=== PATIENT | male | born 1985 | race American Indian/Alaskan Native ===

== ENCOUNTER 2017-10-30 20:51 | Emergency (ER) | payer MEDICAID ==
[2017-10-30] MEDS: Penicillin V Potassium 250 MG Tab PO ONE (22:00)
[2017-10-30] MEDS: Ketorolac 60 MG/2 ML SDV IM ONE (22:00)
[2017-10-30] MEDS: Acetaminophen/HYDROcodone 325-5 MG Tab PO ONE (22:00)
--- NOTE | 2017-10-30 22:05 | EDM.PDOC ---
ED HPI GENERAL MEDICAL PROBLEM - General Chief Complaint: ENT Problem Stated Complaint: TOOTH PAIN Time Seen by Provider: 10/30/17 21:23 Source of Information: Reports: Patient History Limitations: Reports: No Limitations - History of Present Illness INITIAL COMMENTS - FREE TEXT/NARRATIVE: dental pain; reports tooth cracked about one month ago, the past few days has been throbbing pain, has tried oragel without relief. now face is swollen and has left ear pain. New to the area, doesn't have a car. Onset: Gradual Duration: Constant, Getting Worse Location: Reports: Other (dental and ear pain) Quality: Reports: Sharp, Throbbing Severity: Severe Improves with: Reports: None Worsens with: Reports: Eating Associated Symptoms: Reports: No Other Symptoms Treatments DIGITAL ASSOCIATE: Reports: Acetaminophen Other Treatments DIGITAL ASSOCIATE: Oragel Left Lower Tooth/Teeth Pain Score (Numeric/FACES): 7 - Related Data Allergies Allergy/AdvReac Type Severity Reaction Status Date / Time No Known Allergies Allergy Verified 10/30/17 21:35 Home Meds: Home Meds NK [No Known Home Meds] 10/30/17 [History] Past Medical History - Past Health History Medical/Surgical History: Denies Medical/Surgical History Social & Family History - Tobacco Use Smoking Status *Q: Never Smoker - Caffeine Use Caffeine Use: Reports: Coffee, Soda - Recreational Drug Use Recreational Drug Use: No - Living Situation & Occupation Living situation: Reports: with Family Occupation: Unemployed (recently moved to [place] with SO and [id number]. ) ED ROS ENT - Review of Systems Review Of Systems: See Below Constitutional: Reports: Other (facial and ear pain) HEENT: Reports: Dental Pain, Ear Pain (left) Respiratory: Reports: No Symptoms Cardiovascular: Reports: No Symptoms Skin: Reports: No Symptoms Neurological: Reports: No Symptoms Psychiatric: Reports: No Symptoms Hematologic/Lymphatic: Reports: No Symptoms Immunologic: Reports: No Symptoms ED EXAM, ENT - Physical Exam Exam: See Below General Appearance: Alert, WD/WN, Mild Distress, Other (pleasant neat and well groomed) Eye Exam: Bilateral Eye: Normal Inspection Ears: Normal External Exam, TM Bulging (left) Nose: Normal Inspection, Normal Mucousa, No Blood Mouth/Throat: Dental Abcess (left lower molar. ), Dental Pain (left upper and lower jaw. front teeth in excellent condition.) Head: Atraumatic, Facial Swelling (left cheek), Facial Tenderness (left maxillary sinus area) Neck: Normal Inspection, Supple, Non-Tender, Full Range of Motion Respiratory/Chest: No Respiratory Distress Skin: Warm, Dry, Intact, Normal Color, No Rash Lymphatic: No Adenopathy Course - Vital Signs Last Recorded V/S: Last Vital Signs Temp 36.3 C 10/30/17 21:36 Pulse 85 10/30/17 21:36 Resp 16 10/30/17 21:36 BP 135/69 10/30/17 21:36 Pulse Ox 97 10/30/17 21:36 - Orders/Labs/Meds Meds: Medications Discontinued Medications Generic Name Dose Route Start Last Admin Trade Name Freq PRN Reason Stop Dose Admin Hydrocodone Bitart/Acetaminophen 1 tab 10/30/17 21:52 10/30/17 22:00 [place] 325-5 Mg PO 10/30/17 21:53 1 tab ONETIME ONE Administration Ketorolac Tromethamine 60 mg 10/30/17 21:52 10/30/17 22:00 Toradol IM 10/30/17 21:53 60 mg ONETIME ONE Administration Penicillin V Potassium 500 mg 10/30/17 21:52 10/30/17 22:00 Veetids PO 10/30/17 21:53 500 mg ONETIME ONE Administration Departure - Departure Time of Disposition: 22:17 Disposition: Home, Self-Care 01 Condition: Good Clinical Impression: Dental abscess Otitis media Qualifiers: Otitis media type: other nonsuppurative Laterality: left Recurrence: not specified as recurrent - Discharge Information Instructions: Otitis Media, Adult, [id number], Dental Abscess Referrals: PCP,None [Primary Care Provider] - Forms: ED Department Discharge Care Plan Goals: Dental abscess and left ear infection -Penicillin 500mg take one tablet 4 times a day for 10 days -hydrocodone 5-325mg take one tablet every 4 to 6 hours as needed for pain #6 Advised to go to Dental Clinic in am for further care can go to [facility] or [facility] return to ER for any fever, chills, nausea, vomiting, increased facial swelling or any concerns. - Problem List & Annotations (1) Dental abscess SNOMED Code(s): 659111992 Code(s): K04.7 - PERIAPICAL ABSCESS WITHOUT SINUS Status: Acute Priority : High Current Visit: Yes (2) Otitis media SNOMED Code(s): 94925255 Code(s): H66.90 - OTITIS MEDIA, UNSPECIFIED, UNSPECIFIED EAR Status: Acute Priority: Medium Current Visit: Yes Qualifiers: Otitis media type: other nonsuppurative Laterality: left Recurrence: not specified as recurrent - Problem List Review Problem List Initiated/Reviewed/Updated: Yes - Assessment/Plan Plan: Dental abscess and left ear infection -Penicillin 500mg take one tablet 4 times a day for 10 days -hydrocodone 5-325mg take one tablet every 4 to 6 hours as needed for pain #6 Advised to go to Dental Clinic in am for further care can go to [facility] in [place] or [facility] return to ER for any fever, chills, nausea, vomiting, increased facial swelling or any concerns.
== END 2017-10-30 22:17 | disposition home or self-care (01) ==
LOC: JP.ED 20:51
DX: K04.7 Periapical abscess without sinus (principal); H65.92 Unspecified nonsuppurative otitis media, left ear
CPT/HCPCS: 96372; 99283; A9270; J1885

== ENCOUNTER 2018-07-19 18:36 | Emergency (ER) | payer SELFPAY ==
--- NOTE | 2018-07-19 19:24 | EDM.PDOC ---
ED HPI GENERAL MEDICAL PROBLEM - General Chief Complaint: ENT Problem Stated Complaint: TOOTH PAIN Time Seen by Provider: 07/19/18 19:10 Source of Information: Reports: Patient History Limitations: Reports: No Limitations - History of Present Illness INITIAL COMMENTS - FREE TEXT/NARRATIVE: 32-year-old male with right mandibular dental pain for the past 2 days. He has started to develop a small amount of swelling, no fevers or chills. No other symptoms. Onset: Gradual Duration: Day(s): Face/Facial Pain Score (Numeric/FACES): 9 - Related Data Allergies Allergy/AdvReac Type Severity Reaction Status Date / Time No Known Allergies Allergy Verified 10/30/17 21:35 Home Meds: Home Meds NK [No Known Home Meds] 10/30/17 [History] Past Medical History - Past Health History Medical/Surgical History: Denies Medical/Surgical History Social & Family History - Tobacco Use Smoking Status *Q: Never Smoker - Caffeine Use Caffeine Use: Reports: Coffee, Soda - Recreational Drug Use Recreational Drug Use: No - Living Situation & Occupation Living situation: Reports: with Family Occupation: Unemployed (recently moved to [place] [employer] with SO and [id number]. ) ED ROS ENT - Review of Systems Review Of Systems: See Below Constitutional: Denies: Fever, Chills HEENT: Reports: Other (Dental pain with slight facial swelling of the right mandible) Respiratory: Denies: Shortness of Breath, Cough GI/Abdominal: Denies: Nausea, Vomiting Skin: Denies: Bruising, Erythema Neurological: Denies: Headache ED EXAM, ENT - Physical Exam Exam: See Below Exam Limited By: No Limitations General Appearance: Alert, No Apparent Distress (Looks uncomfortable but not distressed) Mouth/Throat: Other (Advanced dental decay of the first and second molars on the right mandible, gingival hyperemia and slight swelling) Course - Vital Signs Last Recorded V/S: Last Vital Signs Temp 96.9 F 07/19/18 18:57 Pulse 63 07/19/18 18:57 Resp 18 07/19/18 18:57 BP 171/105 H 07/19/18 18:57 Pulse Ox 99 07/19/18 18:57 - Orders/Labs/Meds Meds: Medications Discontinued Medications Generic Name Dose Route Start Last Admin Trade Name Freq PRN Reason Stop Dose Admin Hydrocodone Bitart/Acetaminophen 1 tab 07/19/18 19:33 07/19/18 19:39 [place] 325-10 Mg PO 07/19/18 19:34 1 tab ONETIME ONE Administration Ibuprofen 600 mg 07/19/18 19:32 07/19/18 19:39 Motrin PO 07/19/18 19:33 600 mg ONETIME ONE Administration Penicillin V Potassium 500 mg 07/19/18 19:32 07/19/18 19:38 Veetids PO 07/19/18 19:33 500 mg ONETIME ONE Administration - Re-Assessments/Exams Free Text/Narrative Re-Assessment/Exam: 07/19/18 20:24 Patient placed on penicillin VK 500 4 times daily, ibuprofen 600 mg 4 times a day and was discharged with one oral dose of [place] 10 mg. He needs to contact a dentist as soon as possible early next week, and return if worsening despite the antibiotics over the weekend. Departure - Departure Time of Disposition: 19:40 Disposition: Home, Self-Care 01 Condition: Good Clinical Impression: Dental abscess - Discharge Information Instructions: Dental Abscess, [id number] Referrals: PCP,None [Primary Care Provider] - Forms: ED Department Discharge Care Plan Goals: Take antibiotic and pain meds as prescribed. See a dentist next week as soon as possible
[2018-07-19] MEDS ORDERED: Ibuprofen 600 MG Tab PO ONE (19:32)
[2018-07-19] MEDS ORDERED: Penicillin V Potassium 250 MG Tab PO ONE (19:32)
[2018-07-19] MEDS ORDERED: Acetaminophen/HYDROcodone 325-10 MG Tab PO ONE (19:33)
== END 2018-07-19 19:41 | disposition home or self-care (01) ==
LOC: JP.ED 18:36
DX: K04.7 Periapical abscess without sinus (principal)
CPT/HCPCS: 99283; A9270